=== PATIENT | male | born 1940 | race Caucasian/White ===

== ENCOUNTER 2019-02-28 18:49 | Emergency (ER) | payer MEDICARE, OTHER ==
[~2019-02-28] VITALS: Ht 170.2 cm; Wt 64.4 kg
--- NOTE | 2019-02-28 19:01 | NUR ---
BIB [facility] C/O SOB AND CHILLS , pt to bed 7, pt on nonrbr mask, o2 sat 100%, pt on monitor, pending md olvera
[2019-02-28 19:20] LABS: BASOPHILS # (AUTO) 0.1 /CMM (0.0-0.2); BASOPHILS % (AUTO) 0.4 % (0.0-2.0); EOSINOPHILS % (AUTO) 0.1 % (0.0-6.0); HEMATOCRIT 39 % (39-51); LYMPHOCYTES # (AUTO) 1.1 /CMM (0.8-4.8); LYMPHOCYTES % (AUTO) 5.2 % (20.0-44.0); MEAN CORPUSCULAR HGB CONC 31 g/dl (31.0-36.0); MEAN CORPUSCULAR VOLUME 88 fL (80-96); MONOCYTES % (AUTO) 4.9 % (2.0-12.0); NEUTROPHILS # (AUTO) 18.2 /CMM (1.8-8.9); NEUTROPHILS % (AUTO) 89.4 % (43.0-81.0); PLATELET COUNT (AUTO) 540 /CMM (150-450); RED BLOOD CELL COUNT(AUTO) 4.43 MIL/uL (4.5-6.0); WHITE BLOOD COUNT (AUTO) 20.4 K/uL (4.3-11.0)
[2019-02-28 19:31] LABS: CALCIUM, SERUM 8.9 mg/dL (8.5-10.1); CARBON DIOXIDE 26 mmol/L (21-32); CHLORIDE 101 mmol/L (98-107); CREATININE 2.8 mg/dL (0.6-1.3); GLUCOSE 109 mg/dL (74-106); POTASSIUM 4.7 mmol/L (3.5-5.1); SODIUM SERUM 134 mmol/L (136-145); UREA NITROGEN, BLOOD 24 mg/dL (7-18)
[2019-02-28 19:43] LABS: ALANINE AMINOTRANSFERASE 172 U/L (12-78); ALBUMIN 3.2 g/dL (3.4-5.0); ALKALINE PHOSPHATASE 140 U/L (46-116); ASPARTATE AMINOTRANSFERASE 129 U/L (15-37); B-TYPE NATRIURETIC PEPTIDE 12212 PG/ML (0-125); BILIRUBIN,DIRECT 0.3 mg/dL (0.0-0.2); BILIRUBIN,TOTAL 0.9 mg/dL (0.2-1.0); TOTAL PROTEIN, SERUM 5.9 g/dL (6.4-8.2)
--- NOTE | 2019-02-28 20:11 | NUR ---
CALLED [facility] REQUESTING A DR TO DR CALL. AWAITING A CALL BACK
[2019-02-28] MEDS ORDERED: FUROSEMIDE 40 MG/4 ML VIAL ONE (20:21)
[2019-02-28] MEDS ORDERED: FUROSEMIDE 40 MG/4 ML VIAL IV ONE (20:30)
--- NOTE | 2019-02-28 20:50 | NUR ---
RT NOTE PT RECEIVED ON 100% NONREBREATHER MASK. PT AWAKE/ALERT. PLACED BIPAP ON 21/06, BUR 16, 100%. MD CAMARA AWARE. PT STATUS IMPROVED ON BIPAP. WILL MONITOR AND AWAIT FOR NEW ORDERS. Addendum: 02/28/19 at 2201 by CLARA ADDISON RT Amended: Links added.
[2019-02-28] MEDS ORDERED: LEVOFLOXACIN 750 MG /D5W 150ML PIGGYBACK IV ONE (21:00)
--- NOTE | 2019-02-28 21:01 | NUR ---
ADDENDUM: Intravenous End Time Documentation: Levaquin 750 mg IVPB: start time: 2100 ; end time: 2200 : IV site: LAC # 20 Port # 1
[2019-02-28] MEDS ORDERED: LEVOFLOXACIN 750 MG /D5W 150ML 150 ML IV ONE (21:29)
--- NOTE | 2019-02-28 21:55 | NUR ---
rt called regarding abg order, per zeinab rodriguez, cancel, "he doesnt need it'
--- NOTE | 2019-02-28 22:00 | NUR ---
CALLED [facility] TO GET ETA FOR AMBULANCE. WAS INFORMED THAT THEY ARE WORKING ON GETTING A TRANSPORT
--- NOTE | 2019-03-01 01:49 | NUR ---
CALL FROM [facility]. PT ACCEPTED TO [facility]. BED [address]. DR RODRÍGUEZ. # FOR REPORT [phone]. ETA [id number]
[2019-03-01 02:05] VITALS: BP 108/53
--- NOTE | 2019-03-01 02:15 | NUR ---
REPORT GIVEN TO FLACO NURSE AT [facility]
--- NOTE | 2019-03-01 02:20 | NUR ---
[facility] TRANSPORT IN FACILITY, REPORT GIVEN TO [facility] NURSE.
--- NOTE | 2019-03-01 03:00 | NUR ---
PT LEFT FACILITY VIA PRIVATE AMBULANCE TO [facility], LEFT IN STABLE CONDITION. VS RECORDED, LEFT WITH
== END 2019-03-01 03:02 | disposition short-term general hospital (02) ==
LOC: ER 18:52
DX: R06.03 Acute respiratory distress (principal); N28.9 Disorder of kidney and ureter, unspecified; I50.9 Heart failure, unspecified; R22.43 Localized swelling, mass and lump, lower limb, bilateral; Z85.118 Personal history of other malignant neoplasm of bronchus and lung
CPT/HCPCS: 36415; 71045; 80048; 80076; 83880; 84484; 85025; 85730; 87804 ×2; 93005; 93970; 96365; 96375; 99291; J1940; J1956